=== PATIENT | female | born 1975 | race Caucasian/White ===

== ENCOUNTER 2018-06-08 00:49 | Observation (INO) | payer SELFPAY ==
[2018-06-08 01:37] LABS: Hemoglobin 11.9 g/dL (12.0-16.0); Mean Corpuscular HGB CONC 34.4 g/dL (32.0-36.0); Mean Platelet Volume 7.2 fL (7.4-10.4); Platelet Count 322 thou/uL (130-400); RBC Distribution Width 11.3 % (11.5-14.5); Red Blood Cell (RBC) Count 3.31 mill/uL (4.20-5.40); White Blood Cell (WBC) Count 4.7 thou/uL (4.8-10.8)
[2018-06-08 01:42] LABS: BHCG - Serum Negative (NEGATIVE); Pregs Control Background? CLEAR/WHITE (CLR/WHITE); Pregs Control Bar Appear? YES (CONTROL BAR)
[2018-06-08 01:51] LABS: ALT (SGPT) 22 U/L (8-55); AST (SGOT) 31 U/L (5-34); Albumin 4.7 g/dL (3.5-5.0); Alkaline Phosphatase 82 U/L (40-150); Anion Gap 17 mmol/L (10-20); BUN (Urea Nitrogen) 15 mg/dL (7.0-18.7); Bilirubin, Total Less than 0.2 mg/dL (0.2-1.2); Calc. Creatinine Clearance 0 mL/min (70-130); Calcium 9.5 mg/dL (7.8-10.44); Carbon Dioxide 20 mmol/L (22-29); Chloride 111 mmol/L (98-107); Estimated GFR-MDRD 78; Globulin 3.4 g/dL (2.4-3.5); Glucose 99 mg/dL (70-105); Protein, Total 8.1 g/dL (6.0-8.3); Sodium 144 mmol/L (136-145)
[2018-06-08 02:01] LABS: #Basophils 0.1 thou/uL (0.0-0.2); #Eosinphils 0.2 thou/uL (0.0-0.7); #Lymphocytes 1.9 thou/uL (1.20-3.40); #Monocytes 0.3 thou/uL (0.11-0.59); #Neutrophils 2.3 thou/uL (1.40-6.50); %Basophils 1.1 % (0.0-1.0); %Eosinophils 3.5 % (0.0-10.0); %Lymphocytes 40.8 % (21.0-51.0); %Monocytes 6.2 % (0.0-10.0); %Neutrophils 48.4 % (42.0-75.0); MDiff Complete? YES; Macrocytosis SLIGHT = 6-15 cells (100X) (0-5/hpf)
[2018-06-08] MEDS ORDERED: Morphine 4 MG/ML VIAL ONE (02:15)
[2018-06-08 05:04] LABS: Hemoglobin 10.1 g/dL (12.0-16.0)
--- NOTE | 2018-06-08 06:29 | HP ---
CHIEF COMPLAINT: Heavy vaginal bleeding with shortness of breath at home. HISTORY OF PRESENT ILLNESS: Ms. Harris is a 42-year-old white G2, P2, with a last menstrual period of approximately 06/02/2018, who presented to the ER early this morning complaining of heavy vaginal bleeding over the last 5 to 6 days, acutely more heavy this evening. She states that she has had a history of progressively heavy periods over the last year. She reports that her last Pap smear was with Dr. Zhou approximately 3 years ago, but that her exam was normal at that time. PAST OBSTETRICAL HISTORY: Includes a section and a vaginal delivery. PAST MEDICAL HISTORY: None. PAST SURGICAL HISTORY: and breast augmentations. CURRENT MEDICATIONS: None. ALLERGIES: MOTRIN, WHICH SHE SAYS GIVES HER SWELLING OF HER LIPS. SOCIAL HISTORY: She drinks socially. She denies smoking or drug use. FAMILY HISTORY: Unremarkable. REVIEW OF SYSTEMS: Positive for palpitations and shortness of breath earlier this evening, now resolved. She denies fever, chills, nausea, vomiting, or change in bowel or bladder habits. PHYSICAL EXAMINATION: VITAL SIGNS: On admission, showed a blood pressure of 109/78 with a pulse of 140. Currently, her vital signs are blood pressure 94/68 with a pulse of 82, respirations 20, and O2 saturation 98% on room air. GENERAL: She is pleasant, but sleepy. She is in no acute distress. CHEST: Clear to auscultation. CARDIOVASCULAR: Regular rate and rhythm. ABDOMEN: Soft and nontender. There is a well-healed Pfannenstiel scar. On bimanual pelvic examination, her bladder is quite full, but she has a normally palpated cervix and what appears to be upper limits normal size uterus. LABORATORY DATA: White count is 4.7. Initial hemoglobin and hematocrit are 11.9 and 34.6 respectively. Her platelet count is 322,000. Sodium 144, potassium 4, chloride 111, carbon dioxide 20, creatinine 0.80, BUN 15, total bilirubin less than 0.2 with AST and ALT of 31 and 22 respectively. Her serum test is negative. Her laboratories were repeated and her hemoglobin and hematocrit had dropped to 10.1 and 30.2 respectively after she had been given 2 L of fluid in the ER. Ultrasound has been performed but has not been formally read. It appears that she has multiple fibroids with a thickened endometrium. ASSESSMENT: 1. Menorrhagia. 2. Anemia. 3. Suspected fibroid uterus. PLAN: The patient will be observed and another set of laboratories will be obtained at 9 o'clock this morning. I will relay this information to Dr. Mohan at checkout. Once stable this admission, will need to follow up with Dr. Zhou for further evaluation. Job ID: [id number]
[2018-06-08 06:46] VITALS: BP 103/63; TEMP 97.7
[2018-06-08] MEDS ORDERED: Sodium Chloride 0.9% 1,000 ML IV SCH (06:58)
[2018-06-08 07:43] VITALS: BMI 23.3
--- NOTE | 2018-06-08 08:21 | ULT ---
PRELIMINARY REPORT/[facility]/EMERGENCY AFTER HOURS PROCEDURE: Addendum created by Chele Jackson MD on 06/08/2018 2:43 AM Central Time ( & Harvinder) Report should have read: EXAM: US Pelvis Complete, Transabdominal EXAM DATE/TIME: 06/08/2018 1:12 AM CLINICAL HISTORY: 42 years old, female; Heavy vaginal bleeding with clots x 5 days; Pelvic pain; Heavy vaginal bleeding on/off x 4 months. Tubal ligation 2000. TECHNIQUE: Imaging protocol: Real-time transabdominal pelvic ultrasound with image documentation. Complete exam. COMPARISON: No relevant prior studies available. FINDINGS: The uterus measures 10.0 x 5.0 x 8.9 cm. Multiple uterine leiomyomas with the largest measuring 5.8 x 5.5 x 5.2 cm. Thickened heterogeneous endometrium measuring 1.45 cm. Neither ovary is ever clearly visualized. No free pelvic fluid. IMPRESSION: 1. Multiple uterine leiomyomas with the largest measuring 5.8 x 5.5 x 5.2 cm. 2. Thickened heterogeneous endometrium measuring 1.45 cm. 3. Neither ovary is ever clearly visualized. Initial Report created on 06/08/2018 2:42 AM Central Time ( & Harvinder) EXAM: US Pelvis Complete, Transabdominal EXAM DATE/TIME: 06/08/2018 1:12 AM CLINICAL HISTORY: 42 years old, female; Heavy vaginal bleeding with clots x 5 days; Pelvic pain; Heavy vaginal bleeding on/off x 4 months. Tubal ligation 2000. TECHNIQUE: Imaging protocol: Real-time transabdominal pelvic ultrasound with image documentation. Complete exam. COMPARISON: No relevant prior studies available. FINDINGS: The uterus measures 10.0 x 5.0 x 8.9 cm. Multiple uterine leiomyomas with the largest measuring 5.8 x 5.5 x 5.2 cm. Thickened heterogeneous endometrium measuring 1.45 cm. Neither ovary is never clearly visualized. No free pelvic fluid. IMPRESSION: 1. Multiple uterine leiomyomas with the largest measuring 5.8 x 5.5 x 5.2 cm. 2. Thickened heterogeneous endometrium measuring 1.45 cm. 3. Neither ovary is never clearly visualized. Thank you for allowing us to participate in the care of your patient. Dictated and Authenticated by: Chele Jackson MD 06/08/2018 2:42 AM Central Time ( & Harvinder) FINAL REPORT PELVIC ULTRASOUND: Date: 06/08/18 HISTORY: Heavy vaginal bleeding with clots x5 days. FINDINGS: Real-time imaging of the pelvis was obtained transabdominally and with an endovaginal probe. These sh ow a uterus which measures 5.0 x 8.9 x 10.0 cm. Endometrium is thickened and heterogeneous, probably representing some blood. There are some ill-defined areas of altered echogenicity associated with the uterus, which appear to represent fibroids. One of these areas measures up to 5.0 cm in size. They a re somewhat difficult to define. Neither right nor left ovary is identified. IMPRESSION: 1. Mildly enlarged uterus with what appear to be uterine fibroids. 2. Thickened heterogeneous endometrium. 3. Nonvisualization of either ovary. This report is in agreement with the preliminary report issued by [facility]. POS: BRAN
--- NOTE | 2018-06-08 13:16 | DIS ---
DATE OF ADMISSION: 06/08/2018 DATE OF DISCHARGE: 06/08/2018 DIAGNOSES: 1. Abnormal uterine bleeding. 2. Fibroid uterus. HOSPITAL COURSE: The patient was seen in the emergency department for heavy vaginal bleeding and noted to be tachycardic with mild anemia. The patient was placed on observation for repeat hemoglobin and IV fluids. After approximately 4 hours, her hemoglobin went from 10.1 to 10.0. The patient normalized to a heart rate in the 70s, had stable hemoglobin, and was meeting milestones for discharge. FOLLOWUP: Follow up with Dr. Zhou within the next two weeks. DISCHARGE PRESCRIPTIONS: Provera. DIET: Regular. ACTIVITIES: As tolerated. INSTRUCTIONS: Call or return for heavy vaginal bleeding or symptoms of severe anemia. Job ID: [id number] MTDD
== END 2018-06-08 10:05 | disposition home or self-care (01) ==
LOC: ERS 00:49 → 3SE 06:43
PROVIDERS: ADMIT Obstetrics & Gynecology; ATTEND Obstetrics & Gynecology
DX: N93.9 Abnormal uterine and vaginal bleeding, unspecified (principal); D25.9 Leiomyoma of uterus, unspecified; D64.9 Anemia, unspecified; Z88.8 Allergy status to other drugs, medicaments and biological substances
CPT/HCPCS: 36415; 76856; 80053; 84703; 85025; 86850; 86900; 86901; 96361; 96374; G0378; J2270

== ENCOUNTER 2018-06-27 13:20 | Emergency (ER) | payer SELFPAY ==
[2018-06-27 14:11] LABS: #Eosinphils 0.1 thou/uL (0.0-0.7); #Lymphocytes 1.4 thou/uL (1.20-3.40); #Monocytes 0.4 thou/uL (0.11-0.59); #Neutrophils 2.9 thou/uL (1.40-6.50); %Basophils 0.7 % (0.0-1.0); %Lymphocytes 28.9 % (21.0-51.0); %Monocytes 7.7 % (0.0-10.0); %Neutrophils 60.7 % (42.0-75.0); Hemoglobin 11.5 g/dL (12.0-16.0); Mean Corpuscular Hemoglobin 35.9 pg (27.0-31.0); Mean Platelet Volume 7.3 fL (7.4-10.4); Platelet Count 227 thou/uL (130-400); RBC Distribution Width 11.7 % (11.5-14.5); Red Blood Cell (RBC) Count 3.22 mill/uL (4.20-5.40); White Blood Cell (WBC) Count 4.8 thou/uL (4.8-10.8)
[2018-06-27 14:26] LABS: BHCG - Serum Negative (NEGATIVE); Pregs Control Background? CLEAR/WHITE (CLR/WHITE); Pregs Control Bar Appear? YES (CONTROL BAR)
[2018-06-27 14:31] LABS: ALT (SGPT) 15 U/L (8-55); AST (SGOT) 18 U/L (5-34); Albumin 4.5 g/dL (3.5-5.0); Alkaline Phosphatase 74 U/L (40-150); Anion Gap 12 mmol/L (10-20); BUN (Urea Nitrogen) 12 mg/dL (7.0-18.7); Bilirubin, Total 0.3 mg/dL (0.2-1.2); Calc. Creatinine Clearance 0 mL/min (70-130); Calcium 9.6 mg/dL (7.8-10.44); Carbon Dioxide 25 mmol/L (22-29); Chloride 105 mmol/L (98-107); Estimated GFR-MDRD 70; Globulin 2.9 g/dL (2.4-3.5); Glucose 93 mg/dL (70-105); Potassium 3.9 mmol/L (3.5-5.1); Protein, Total 7.4 g/dL (6.0-8.3); Sodium 138 mmol/L (136-145)
[2018-06-27 14:38] LABS: Bilirubin Negative (Negative); Blood, Urine Large (Negative); Clarity CLEAR (Clear); Glucose, Urine (Dipstick) Negative (Negative); Leukocyte Negative (Negative); Nitrite Negative (Negative); Protein, Urine (Dipstick) Negative (Neg-Trace); Specific Gravity, Urine 1.004 (1.002-1.036); Urobilinogen 0.2 mg/dL (0.2-1.0); pH, Urine 6.5 (5.0-9.0)
[2018-06-27 14:42] LABS: Bacteria/HPF None Seen HPF (None Seen); Hyaline Casts/LPF 0-3 HYALINE CAST LPF (0-3 Hyaline); Pathc Cast-AUWi Flag 0.27 (0-2.49); Squamous Epithelial 0-3 HPF (0-3); WBC/HPF None Seen HPF (0-3)
== END 2018-06-27 16:25 | disposition home or self-care (01) ==
LOC: ERS 13:20
DX: N93.8 Other specified abnormal uterine and vaginal bleeding (principal)
CPT/HCPCS: 36415; 80053; 81003; 81015; 84703; 85025; 87086; 99284

== ENCOUNTER 2018-07-06 12:00 | Inpatient (IN) | payer OTHER ==
[2018-07-06 12:48] VITALS: BMI 21.2
[2018-07-06 14:18] LABS: Pregnancy Test - Urine (BHCG) Negative (Negative); Pregu Control Background? CLEAR/WHITE (CLR/WHITE); Pregu Control Bar Appear? YES (CONTROL BAR); Specific Gravity 1.009 (1.002-1.036)
--- NOTE | 2018-07-07 08:00 | HP ---
She was scheduled for surgery on 07/10. HISTORY OF PRESENT ILLNESS: Ms. Harris is a 43-year-old white female with prior section x2 with tubal ligation, who has been having recurrent heavy menstrual bleeding. She was diagnosed recently by ultrasound with multiple uterine fibroids of the uterus. She has multiple uterine fibroids, largest measuring 5 cm on the ER visit. She has been noted to be anemic with hematocrit of 30% due to the heavy flow. She also has discomfort and cramping due to the fibroids. This bleeding has been ongoing for the past five months. She has had a tubal ligation and history of noted two sections. She had a normal Pap smear in 2014 with no cervical dysplasia in the past. She reports flooding maxi pads of less than 30 minutes and bleeds for 7 to 10 days on her menstrual cycle. PAST MEDICAL HISTORY: Otherwise negative. PAST SURGICAL HISTORY: Breast augmentation, section x2, and tubal ligation. ALLERGIES: SHE HAS ALLERGIES TO IBUPROFEN CAUSING LIP SWELLING, BUT SHE REPORTS BEING ABLE TO TAKE NAPROSYN WITH NO PROBLEMS. FAMILY HISTORY: Noncontributory. CURRENT MEDICATIONS: Medroxyprogesterone 10 mg tablet daily and iron orally. PHYSICAL EXAMINATION: VITAL SIGNS: The patient's height is 5 feet 7 inches, weight 154 with a BMI of 24.1, blood pressure is 134/70, pulse is 94, respirations 18, and O2 saturation 98% on room air. HEENT: Within normal limits. CHEST: Clear to auscultation. HEART: Regular rate and rhythm. S1 and S2 heart sounds. No murmurs, rubs, or gallops. ABDOMEN: Soft, nondistended with no palpable masses. Well-healed Pfannenstiel incisional scar noted. No hernia appreciated. PELVIC: Vulva and vagina had no lesions. Cervix had no visible lesions. Uterus was 12-week size irregular consistent with uterine fibroids. Adnexa nontender with no masses. ASSESSMENT: This is a 43-year-old white female, prior section x2 with tubal ligation with 12-week symptomatic uterine fibroids with menorrhagia, pelvic pain, and documented anemia due to chronic blood loss. She desires definitive surgical therapy. PLAN: Plan is to proceed with robotic total laparoscopic hysterectomy and bilateral salpingectomy. Most likely will also need to use the ExCITE procedure for removal of tissue specimen. Risks and benefits of procedure have been discussed in detail. She is set for surgery on 07/10. Job ID: [id number]
[2018-07-10] MEDS ORDERED: Gabapentin 300 MG CAP ONE (06:00)
[2018-07-10] MEDS ORDERED: CeleCOXIB 100 MG CAP ONE (06:01)
[2018-07-10] MEDS ORDERED: Famotidine/PF 20 mg/2ml Vial ONE ×3 (06:01→06:56)
[2018-07-10] MEDS ORDERED: Bupivacaine HCl 0.5%/Epinephrine 1:200,000/PF 30 ml Vial ONE (06:54)
[2018-07-10] MEDS ORDERED: Meperidine HCl/PF 25 MG/ML VIAL ONE (06:55)
[2018-07-10] MEDS ORDERED: Fentanyl 100 MCG/2 ML VIAL ONE ×3 (06:55→10:59)
[2018-07-10] MEDS ORDERED: Midazolam HCl 2 mg/2 ml Vial ONE (07:07)
[2018-07-10] MEDS ORDERED: Promethazine HCl 25 MG/ML VIAL IM PRN ×2 (09:54→10:30)
[2018-07-10] MEDS ORDERED: Ondansetron HCl/PF 4 MG/2 ML Vial IVP PRN (09:54)
[2018-07-10] MEDS ORDERED: Promethazine HCl 25 MG/ML VIAL SLOW IVP PRN (09:54)
[2018-07-10] MEDS ORDERED: Meperidine HCl/PF 25 MG/ML VIAL SLOW IVP PRN (09:54)
[2018-07-10] MEDS ORDERED: Bisacodyl 10 MG SUPP PR PRN (10:30)
[2018-07-10] MEDS ORDERED: diphenhydrAMINE 25 MG CAP PO PRN (10:30)
[2018-07-10] MEDS ORDERED: Lactated Ringer's 1,000 ML IV SCH (10:30)
[2018-07-10] MEDS ORDERED: Ondansetron PF 4 MG/2 ML Vial IVP PRN (10:30)
[2018-07-10] MEDS ORDERED: Simethicone Chewable 80 MG TAB PO PRN (10:30)
[2018-07-10] MEDS ORDERED: Ketorolac Tromethamine 30 MG/ML VIAL IVP SCH (12:00)
[2018-07-10] MEDS ORDERED: Acetaminophen 1,000 MG in Premix Bag 1 BAG IVPB SCH (12:00)
[2018-07-10] MEDS ORDERED: Rocuronium Bromide 10 MG/ML (10ML VIAL) ONE (13:13)
[2018-07-10] MEDS ORDERED: Dexamethasone 20 MG/5 ML VIAL ONE (13:13)
[2018-07-10] MEDS ORDERED: Glycopyrrolate 0.2 MG/ML 5 ML SYRINGE ONE (13:13)
[2018-07-10] MEDS ORDERED: Ondansetron PF 4 MG/2 ML Vial ONE (13:13)
[2018-07-10] MEDS ORDERED: PROPOFOL 200 MG/20 ML VIAL ONE (13:13)
[2018-07-10] MEDS ORDERED: Lidocaine 1% PF 5 ML VIAL ONE (13:13)
[2018-07-10] MEDS: Morphine 4 MG/ML VIAL SLOW IVP PRN ×2 (15:25→20:10)
[2018-07-10] MEDS: Acetaminophen 1,000 MG in Premix Bag 1 BAG IVPB SCH ×2 (15:32→22:26)
[2018-07-10] MEDS: traMADol HCl 50 MG TAB PO PRN (18:48)
--- NOTE | 2018-07-10 19:47 | OP ---
DATE OF PROCEDURE: 07/10/2018 PREOPERATIVE DIAGNOSES: 1. A 43-year-old white female, G2, P2, with prior section x2 and tubal ligation with menorrhagia. 2. A 14 to 16-week uterine fibroids. POSTOPERATIVE DIAGNOSES: 1. A 43-year-old white female, G2, P2, with prior section x2 and tubal ligation with menorrhagia. 2. A 14 to 16-week uterine fibroids. PROCEDURES PERFORMED: Robotic total laparoscopic hysterectomy with left salpingo-oophorectomy and right salpingectomy. FIRST OFFICER AND FLIGHT INSTRUCTOR SURGEON: Malinda Manuel DO. ANESTHESIA: General endotracheal. ESTIMATED BLOOD LOSS: 50 mL. COMPLICATIONS: None. COUNTS: Correct x2. FINDINGS: 1. Multiple uterine fibroids noted, approximately 14 to 16-week size. The left adnexa, the fallopian tube and ovary were adhesed to a subserosal left uterine fibroid. 2. Normal-appearing right fallopian tube and ovary. 3. Bilateral ureteral peristalsis visualized postprocedure and bladder was watertight to fluid distention over 300 mL postprocedure. DISPOSITION: Recovery room, stable. DESCRIPTION OF PROCEDURE: The patient previously received informed consent in regard to surgery. She was taken back to the operating room, where she received a general endotracheal anesthetic agent without complications. She was placed in the dorsal lithotomy position with use of Salbador stirrups and prepped and draped in usual sterile fashion. A Daniel catheter was placed at this time, a side-arm speculum placed in the vagina. The anterior lip of cervix was grasped with single-tooth tenaculum. The uterus sounded to 11 cm. A size 10 cm SHLOMO uterine manipulator with 4.0 cm cervical cup was placed in usual fashion. Tenaculum and speculum were removed. Attention was then turned to the abdomen, where perspective trocar sites were infiltrated with 0.5% Marcaine with epinephrine. A 12 mm supraumbilical incision was made. Veress needle was entered in the abdominal cavity. The patient's pressure was noted to be less than 5 mmHg. The abdomen was insufflated with the patient's pressure of 15, approximately 4.5 L of carbon dioxide gas. A size 12 mm trocar was then placed through the incision site and a laparoscope was introduced through the trocar sleeve confirming proper entry. Bilateral lower quadrant 8 mm trocars along with a left 11 mm kitchen assistant port were placed in the right upper quadrant. The previously mentioned findings were noted, and therefore a small GelPOINT retractor was then placed in the umbilicus area after 2.5 cm fascial defect was made and extended through the previous supraumbilical port site. The GelPOINT was placed along with Jose O retractor and then the laparoscope was placed through the GelPOINT and the abdomen was revisualized with the previously mentioned findings. The patient was placed in the dorsal lithotomy position. At this time, an Aces medium-sized bag had been accordion tied and placed in the right upper quadrant through the GelPOINT. The robot was then docked. The bipolar fenestrated cautery device along with monopolar scissors was then placed through the 8 mm trocar operative sites after the robot had been docked. The pelvis was inspected. The uterus was elevated. The left fallopian tube and left ovary were very adhesed to the fibroid on the left side of the uterus. This made difficult to take away without onset of some bleeding from the ovary, and therefore, the IP ligament was coagulated and transected with bipolar fenestrated cautery. The position of the left ureter was noted to be well below this operative site and the path of it was traced on the pelvic sidewall. The remainder of the pelvic ligament on the left side was coagulated and transected until the left round ligament was reached. It was coagulated and transected, opening up the anterior leaf of the broad ligament and dissecting the vesicouterine peritoneum. This allowed for layering and dissection atraumatically both sharply and bluntly of the bladder past cervicovaginal junction. The left uterine vessels were skeletonized some in the internal cervical os region, they were coagulated. The right fallopian tube was then identified. It was grasped and it was bipolar fenestrated cauterized into the mesosalpinx and it was excised with monopolar scissors and brought out through the right upper quadrant kitchen assistant port. The right utero-ovarian ligament was coagulated and transected and serial coagulation of the broad ligament hugging close to uterine specimen was carried out until the right round ligament was reached. It was coagulated and transected. Again, the anterior leaf of the broad ligament was entered and completion of the bladder vesicouterine peritoneal dissection was carried out atraumatically. We intermittently checked the watertightness of the bladder as this was carried out and the bladder remained watertight. Once we had skeletonized the right uterine vessels, these were coagulated in the internal cervical os region with bipolar fenestrated cautery. The uterus was bulky and enlarged, and then we elected to coagulate, and started the posterior colpotomy incision from posteriorly from 6 to 3 and then from about 6 to 8 o'clock position. There were some adhesions over the left uterosacral ligament there and we went superior to this and dissected some of the peritoneum to free this to give more distance from the left ureter. Once this was accomplished, the anterior colpotomy was created then from 12 to 3 and 12 to the 9 o'clock positions. Then, we were able to again lift posteriorly and carefully softball player the posterior cuff from 7 to 9, dissecting this way and over the cervical cup superior to the previous coagulation point, which then released and delivered the specimen. The specimen was then taken off the Outlisten uterine manipulator and deposited in the mid abdomen. The vaginal cuff was inspected and then the monopolar scissor was exchanged for a Gigi needle hire car driver. A Stratafix suture was brought in by my kitchen assistant. I then closed the vaginal cuff from the right angle towards left angle back towards the midline. Good hemostasis was confirmed. Again, the pedicle sites were all inspected and hemostasis again was confirmed. The Stratafix needle and suture that remained were brought out through the right upper quadrant kitchen assistant port. Both ureters were visualized and their courses were noted to be inferior to the operative pedicle sites. Bilateral ureteral peristalsis was visualized also and clear urine was draining from the Daniel catheter that had been placed. Next, we brought the previously prepared Aces medium-sized bag into the pelvis. It was in the upright position. We then brought the specimen close to the bag and then the tie sutures were cut by my kitchen assistant, which opened up in the Aces bag. The specimen, the uterus, the left fallopian tube and ovary then placed in the entirety withinside the Aces bag and then it was closed by pulling the open suture loop with drawstring through this closing the bag. My kitchen assistant then brought in an atraumatic grasper through the GelPOINT and pulled the Aces drawstring through the GelPOINT. I then broke away from the robotic console and then we undocked the robot. The Aces bag with the uterus in situ was then brought through the GelPOINT after GelPOINT cap had been removed and the small Jose O retractor was then placed inside the Aces bag for protection during the ExCITE procedure. The uterine specimen was then removed with the use of Salvador thyroid clamps and a C incision technique, removing the specimen in toto in a morcellating fashion. Once this was completed, the Aces bag was then pulled through the Jose O retractor and it was intact. The small Jose O retractor was then removed from the supraumbilical area. The fascia was then closed with a running 0 Vicryl suture, securing the supraumbilical fascial incision. The remainder of the trocar sites were closed with 4-0 Monocryl suture and Dermabond. A sponge stick was then used to examine the vagina and it was noted to be hemostatic. The patient was awakened from anesthesia and transferred to recovery room in stable condition. Job ID: [id number]
[2018-07-11] MEDS: traMADol HCl 50 MG TAB PO PRN ×2 (02:38→07:57)
[2018-07-11] MEDS: Acetaminophen 1,000 MG in Premix Bag 1 BAG IVPB SCH ×2 (04:03→09:43)
[2018-07-11 07:37] VITALS: BP 114/72; TEMP 98.1
--- NOTE | 2018-07-11 08:04 | PDOC.EVN ---
Event Note - Event Note Event Note: Tolerating diet. No nausea. Ambulating and voiding. O: afebrile. stable vitals ABD soft/non tender.Bowel sounds present. trochar sites clean and dry and intact. extremities-non tender. A/P: Post op day 1--robotic tlh/lso with EXCITE. Doing well. Discharge today. F/ u 2 and 6 weeks.
[2018-07-11 08:51] LABS: Mean Corpuscular HGB CONC 33.3 g/dL (32.0-36.0); Mean Corpuscular Hemoglobin 35.5 pg (27.0-31.0); Mean Platelet Volume 7.1 fL (7.4-10.4); Platelet Count 235 thou/uL (130-400); RBC Distribution Width 11.7 % (11.5-14.5); Red Blood Cell (RBC) Count 2.81 mill/uL (4.20-5.40); White Blood Cell (WBC) Count 7.5 thou/uL (4.8-10.8)
[2018-07-11] MEDS ORDERED: Ferrous Sulfate 325 MG TAB PO SCH (09:00)
--- NOTE | 2018-07-12 05:25 | DIS ---
DATE OF ADMISSION: 07/10/2018 DATE OF DISCHARGE: 07/11/2018 DIAGNOSES: Symptomatic uterine fibroids, menorrhagia, and anemia. PROCEDURES PERFORMED: Robotic total laparoscopic hysterectomy, left salpingo-oophorectomy, right salpingectomy, and removal of specimen with ExCITE procedure. SUMMARY OF HOSPITAL COURSE: Ms. Harris is a 43-year-old white female with prior section x2 and tubal ligation, had 14 to 16 weeks' uterine fibroids. She was experiencing heavy menstrual bleeding with previous noted anemia secondary to the menorrhagia. She had failed medical management. She underwent a robotic total laparoscopic hysterectomy and LSO due to some adnexal adhesions of the left adnexa uterine fibroids. The specimen was removed by the ExCITE procedure. Postoperatively, the patient has done well. Her vital signs have remained stable. Her temperature is 98.1, pulse is 81, and respirations are 20 with a blood pressure of 114/72 on postop day #1. Urine output has been good and pathology is pending at the time of this dictation. She has been ambulating and voiding without difficulty and tolerating diet. She was discharged on postop day #1 with followup scheduled in 2 and 6 weeks. She has used [id number] Tylenol as directed and also given a prescription for [place] 5/325 mg p.o. q.6 hours p.r.n. pain. Job ID: [id number]
== END 2018-07-11 10:19 | disposition home or self-care (01) | DRG 743 ==
LOC: SURG A 07-10 05:36 → 3SE 07-10 11:47
PROVIDERS: ADMIT Obstetrics & Gynecology; ATTEND Obstetrics & Gynecology
PROC: 0UT94ZZ Resection of Uterus, Percutaneous Endoscopic Approach (ICD-10-PCS; principal; 2018-07-10)
PROC: 0UT74ZZ Resection of Bilateral Fallopian Tubes, Percutaneous Endoscopic Approach (ICD-10-PCS; 2018-07-10)
PROC: 0UT14ZZ Resection of Left Ovary, Percutaneous Endoscopic Approach (ICD-10-PCS; 2018-07-10)
DX: D25.9 Leiomyoma of uterus, unspecified (principal); N92.0 Excessive and frequent menstruation with regular cycle; D50.0 Iron deficiency anemia secondary to blood loss (chronic); Z98.51 Tubal ligation status; Z41.1 Encounter for cosmetic surgery; Z79.3 Long term (current) use of hormonal contraceptives; Z88.8 Allergy status to other drugs, medicaments and biological substances
CPT/HCPCS: 36415; 81025; 85027; 86850; 86900; 86901; 88307; J0131; J0670; J0690; J1100; J2001; J2175; J2250; J2270; J2405; J2704; J3010; S0028

== ENCOUNTER 2018-07-15 19:11 | Inpatient (IN) | payer SELFPAY ==
[2018-07-15] MEDS ORDERED: Acetaminophen 500 MG TAB PO PRN (19:15)
--- NOTE | 2018-07-15 19:29 | PDOC.EVN ---
Event Note - Event Note Event Note: Direct Admission note: Taken report from [facility] [place]. Patient being a direct admit to [facility] ( I have called Tiffani and given report). Suspect pelvic abscess s/p robotic hyst on 07/10. Patient of Dr Zhou (report given by me to her verbally) Full H&P just dictated by me
--- NOTE | 2018-07-15 20:07 | HP ---
The patient had been admitted to [address] [place] [address]. REASON FOR ADMISSION: Pelvic abscess, status post robotic hysterectomy by Dr. Zhou. HISTORY OF PRESENT ILLNESS: This is a 43-year-old white female, who presented at [facility] (I just received their phone call about 10 minutes ago), who presented there for fevers at home. This is a 43-year-old white female with 2 prior C-sections, and a prior tubal ligation, who was having recurrent heavy menstrual bleeding. She was diagnosed with multiple uterine fibroids and underwent a robotic hysterectomy on June [address] Zhou. At [facility], she was noted to have a temperature of 103.8, and she underwent a CT scan at that location. CT scan at [facility] showed a 7.1 x 4.6 x 6.2 cm fluid collection in the posterior cul-de-sac/deep pelvic area. This is by verbal report with the ER physician. There is also mild bilateral hydro, but this was thought to be reactive due to the pelvic fluid collection. As a side note, the patient was bitten by her neighbor's dog in her left arm today, but that did not seem to be the source of infection according to the ER physician. The dog is currently in quarantine by animal [employer]. PAST MEDICAL HISTORY: Otherwise negative. PAST SURGICAL HISTORY: Breast augmentation, x2, tubal ligation, and a recent robotic hysterectomy on July 10. ALLERGIES: IBUPROFEN THAT MAKES HER LIPS SWELL. THE PATIENT REPORTS BEING ABLE TO TAKE NAPROSYN WITH NO PROBLEM. FAMILY HISTORY: Negative. CURRENT MEDICATIONS: Included Provera for bleeding control before her surgery, but none now. PHYSICAL EXAMINATION: When she presented to the [facility], her temperature was 103.8, and her heart rate was 131. After IV fluids at [facility], her heart rate went down to 122, but her temperature is still 102. Blood pressure is 146/93. LABORATORY ASSESSMENT: White blood cell count was 13 with a left shift, lactate at [facility] is normal at 0.7. [facility] did draw blood cultures and they will send those. The number for results to call back in about 2 days is [phone]. INTERVENTIONS GIVEN: She has received 3 g of Unasyn IV at [facility] and I have requested that they give her 500 mg IV Flagyl prior to transport. She has also received 2 L of crystalloids at that location. ASSESSMENT: This is a patient, who is postop 5 days from robotic hysterectomy due to fibroids with suspected pelvic fluid collection/abscess. She is on Unasyn and Flagyl. CT scan was done at [facility] ER and they will send us the report along with her transport. She is being directly admitted to [address] [place] [address] and bypass in the ER as she has already had an ER workup at [facility]. PLAN: 1. IV fluids. 2. Await blood culture results and we will call the phone number listed ([phone]) in 48 hours for results. 3. Chest x-ray done at the other location and it is negative. 4. I have called Dr. Zhou and given verbal report to her and she is aware. We will round on the patient tomorrow and likely Tuesday as it is and she will evaluate the patient on her return. 5. The patient did not have a pelvic examination performed at [facility] and I will attempt to do one when she arrives, pending availability from Labor and Delivery, at which time I am currently occupied. Job ID: [id number]
[2018-07-15] MEDS ORDERED: Sodium Chloride 0.9% 10 ML ONE (20:52)
[2018-07-15] MEDS: Lactated Ringer's 1,000 ML IV SCH (20:55)
--- NOTE | 2018-07-15 21:16 | PDOC.EVN ---
Event Note - Event Note Event Note: Patient now here. I have seen her at bedside and given report to Dr garcía. Vag exam done by me...unremarkable. HX LSO as well
[2018-07-16] MEDS: metroNIDAZOLE 500 MG in Premix Bag 1 BAG IVPB SCH ×5 (00:02→23:27)
[2018-07-16] MEDS: HYDROcodone/Acetaminophen 10/325 mg Tablet PO PRN ×6 (01:36→23:39)
[2018-07-16] MEDS ORDERED: Sodium Chloride 0.9% 0 ML ONE (01:40)
[2018-07-16 03:11] VITALS: BMI 21.4
[2018-07-16] MEDS: Ampicillin/Sulbactam 3 GM in Sodium Chloride 0.9% 100 ML IVPB SCH ×4 (06:21→18:10)
--- NOTE | 2018-07-16 07:15 | PDOC.EVN ---
Event Note - Event Note Event Note: HD 1 DX: pelvic abscess s/p robotic HYST and LSO...POD 6 S. Feels better this AM o. TMax 103.5 last evening at 8 BPs stable Blood cultures pending at [facility] ED ([phone]) PE: NAD Abd- non surgical (no rebound, gaurding) A/P: s/p Hyst and LSO on 07/10 with suspected pelvic abscess: continue unasyn and flagyl await blood cultures from other location (call after 48 hrs) follow temps
[2018-07-16] MEDS: Lactated Ringer's 1,000 ML IV SCH ×3 (10:28→23:33)
[2018-07-16] MEDS ORDERED: Sodium Chloride 0.9% 10 ML ONE (14:26)
[2018-07-17] MEDS: Ampicillin/Sulbactam 3 GM in Sodium Chloride 0.9% 100 ML IVPB SCH ×4 (00:53→18:57)
[2018-07-17] MEDS: metroNIDAZOLE 500 MG in Premix Bag 1 BAG IVPB SCH ×4 (05:01→23:12)
[2018-07-17] MEDS: HYDROcodone/Acetaminophen 10/325 mg Tablet PO PRN ×4 (06:28→20:30)
--- NOTE | 2018-07-17 08:46 | PRG ---
DATE OF SERVICE: 07/17/2018 SUBJECTIVE: The patient is hospital day 3 for a re-admission for post hysterectomy infection. The patient has been on Unasyn and Flagyl, and has remained afebrile since admission. The patient reports overall that she is feeling better. Her pain is being better controlled. She does feel a little feverish and chills. OBJECTIVE: VITAL SIGNS: Most recent vital signs; blood pressure is 117/65, temperature 98.1, pulse of 108, respiratory rate of 20, saturating at 98% on room air. GENERAL: She appears to be in no acute distress. She is alert, oriented, cooperative, and pleasant to interact with. HEENT: Head is normocephalic and atraumatic. LUNGS: Clear to auscultation bilaterally. HEART: Has regular rate and rhythm. ABDOMEN: Her incision sites are clean, dry, and intact. Abdomen is soft to palpation and nontender. ASSESSMENT AND PLAN: The patient is a 43-year-old female, who is now hospital day 3, approximately 1 week out from robotic-assisted hysterectomy. She has been on Unasyn and Flagyl and has responded clinically and has now been afebrile for over 24 hours with her last temperature being the evening of 07/15. We will continue her antibiotics at this time with plans on repeating imaging tomorrow to evaluate this fluid collection. If this collection is not shrinking significantly or is enlarging, we will likely need to have assistance in getting it drained percutaneously. Dr. Zhou will be returning to resume management tomorrow. Please note, I will be placing orders for repeat CT scan in the morning. Job ID: [id number]
[2018-07-17] MEDS: Lactated Ringer's 1,000 ML IV SCH ×3 (13:09→23:11)
--- NOTE | 2018-07-17 14:23 | PDOC.EVN ---
Event Note - Event Note Event Note: Discussed with Dr. Zhou - will hold on repeat CT as patient is clinically improving.
[2018-07-18] MEDS: Ampicillin/Sulbactam 3 GM in Sodium Chloride 0.9% 100 ML IVPB SCH ×2 (00:22→05:33)
[2018-07-18] MEDS: Lactated Ringer's 1,000 ML IV SCH (05:33)
[2018-07-18] MEDS: HYDROcodone/Acetaminophen 10/325 mg Tablet PO PRN (05:37)
[2018-07-18] MEDS: metroNIDAZOLE 500 MG in Premix Bag 1 BAG IVPB SCH (06:07)
--- NOTE | 2018-07-18 07:45 | PDOC.EVN ---
Event Note - Event Note Event Note: Feeling much better. Tolerating diet. Bowel movement. Voiding well. Much less pain. Ready to go home. O: t 100.5 this AM ; otherwise all < 100 the past 48 hours. BP 113/59; BLood cultures still pending-called [facility] this morning. Will contact me when availabkle.. ABD soft/ non tender this AM A/P: Post op robotic tlh/lso with EXCITE -day 8. Had febrile infection with possible vaginal cuff abscess. Has responded well to IV antibiotics with unasyn and flaggy. . Will d/c home and have patient take 10 day course of oral augmentin/ metrinidazole. F/u as scheduled post op 2 weeks...
[2018-07-18 07:47] VITALS: BP 122/75; TEMP 98.7
--- NOTE | 2018-07-18 22:48 | DIS ---
DATE OF ADMISSION: 07/15/2018 DATE OF DISCHARGE: 07/18/2018 DIAGNOSES: 1. Postop vaginal cuff abscess. 2. Recent robotic total laparoscopic hysterectomy with ExCITE procedure. SUMMARY HOSPITAL COURSE: Ms. Harris is a 43-year-old white female who underwent a robotic total laparoscopic hysterectomy with salpingo-oophorectomy with ExCITE procedure for large uterine fibroids, menorrhagia, anemia on 07/10. She started having some fever and pelvic pain on 07/15 and was noted to have fever in the 103 range. She went to the [facility] and she actually also had been bitten by a neighbor's dog that same day. She was worked up for the fever and had a CAT scan of the abdomen and pelvis. There appeared to be a 7 x 4 x 6 cm fluid collection at the posterior vaginal cuff that was suspicious for possible early abscess formation. She had some mild bilateral hydro due to the pelvic fluid collection, but otherwise no abnormalities noted. She was transferred from [facility] to [facility], was admitted by Dr. Azul, hospitalist. He assessed her and started her on Unasyn and IV metronidazole. She had another fever in the 102 range that evening on admission, but otherwise remained afebrile with temperatures less than 100 throughout the next part of her hospital course. Her pain also drastically improved with IV antibiotics along with other function such as bowel and urination were all normalized. She is this morning feeling much better and is desiring to be discharged home. Her blood cultures are still pending. I just called the [facility] and they have not resulted these yet. Plan is to discharge her home with Augmentin 875 mg p.o. b.i.d. for 10 days along with metronidazole 500 mg p.o. b.i.d. for 10 days. She is to follow up next week with me on her postop 2 weeks' visit. Job ID: [id number]
== END 2018-07-18 09:00 | disposition home or self-care (01) | DRG 863 ==
LOC: OBSVTOIN 20:32 → 3SW 20:32
PROVIDERS: ADMIT Obstetrics & Gynecology; ATTEND Obstetrics & Gynecology
DX: T81.49XA Infection following a procedure, other surgical site, initial encounter (principal); N76.0 Acute vaginitis; N99.89 Other postprocedural complications and disorders of genitourinary system; W54.0XXA Bitten by dog, initial encounter; S41.152A Open bite of left upper arm, initial encounter; Z88.8 Allergy status to other drugs, medicaments and biological substances; Z98.51 Tubal ligation status; Z90.710 Acquired absence of both cervix and uterus; X58.XXXA Exposure to other specified factors, initial encounter
CPT/HCPCS: J0295; J3490